=== PATIENT | male | born 1970 | race Caucasian/White ===

== ENCOUNTER 2021-11-03 09:42 | Outpatient (CLI) | payer OTHER ==
[2021-11-03] MEDS ORDERED: Iopamidol 300 61% 100 ML VIAL FS ONE (15:48)
== END 2021-11-03 09:43 | disposition home or self-care (01) ==
LOC: CSHCT 09:42
PROVIDERS: ATTEND Otolaryngology Otolaryngic Allergy
DX: R22.1 Localized swelling, mass and lump, neck (principal)
CPT/HCPCS: 70491; Q9967